=== PATIENT | male | born 1955 | race Caucasian/White ===

== ENCOUNTER 2018-04-29 15:16 | Outpatient (CLI) | payer BC ==
--- NOTE | 2018-04-29 17:16 | Diagnostic Imaging Report ---
Indication: Cough Technique: 2 views of the chest Comparison: None Findings: Lungs and pleural spaces are clear. Heart size is normal. There is an azygos lobe and fissure-normal anatomic variant. There are degenerative spondylosis changes Impression: No acute process
== END 2018-04-29 15:46 | disposition home or self-care (01) ==
LOC: RAD 15:16
DX: Z01.818 Encounter for other preprocedural examination (principal); R05 Cough; M47.9 Spondylosis, unspecified
CPT/HCPCS: 71046